=== PATIENT | female | born 1975 | race Caucasian/White ===

== ENCOUNTER 2017-01-17 07:34 | Outpatient (CLI) | payer BC ==
[2017-01-17 08:08] LABS: BASOPHILS % (AUTO) 0.7 %; EOSINOPHILS # (AUTO) 0.1 10^3/uL (0.0-0.7); EOSINOPHILS % (AUTO) 1.6 %; HCT - HEMATOCRIT 38.1 % (37.0-47.0); HGB - HEMOGLOBIN 13.3 g/dL (12.0-16.0); LYMPHOCYTES # (AUTO) 1.7 10^3/uL (1.5-3.5); LYMPHOCYTES % (AUTO) 32.8 %; MEAN CORPUSCULAR HEMOGLOBIN 31.3 pg (27.0-31.0); MEAN CORPUSCULAR HGB CONC 34.9 g/dL (32.0-36.0); MEAN CORPUSCULAR VOLUME 89.6 fL (81.0-99.0); MEAN PLATELET VOLUME 7.3 fL (7.9-10.8); MONOCYTES # (AUTO) 0.2 10^3/uL (0.0-1.0); MONOCYTES % (AUTO) 4.4 %; NEUTROPHILS # (AUTO) 3.1 10^3/uL (1.5-6.6); NEUTROPHILS % (AUTO) 60.5 %; RED BLOOD COUNT 4.25 10^6/uL (4.20-5.40); RED CELL DISTRIBUTION WIDTH 13.4 % (12.0-15.0); UNCORRECTED WHITE BLOOD COUNT 5.1 x10^3/uL; WHITE BLOOD COUNT 5.1 x10^3/uL (4.8-10.8)
[2017-01-17 08:22] LABS: HEMOGLOBIN A1C 0.52 g/dL
[2017-01-17 08:34] LABS: ALBUMIN/GLOBULIN RATIO 1.3 (1.0-2.2); BILIRUBIN,TOTAL 0.6 mg/dL (0.2-1.0); CREATININE 0.6 mg/dL (0.4-1.0); POTASSIUM 4.3 mmol/L (3.5-5.0); TOTAL PROTEIN 7.2 g/dL (6.7-8.2)
[2017-01-17 08:57] LABS: FERRITIN 39.1 ng/mL (11.0-306.8)
== END 2017-01-17 07:35 | disposition home or self-care (01) ==
LOC: LAB 07:34
PROVIDERS: ATTEND Nurse Practitioner Primary Care
DX: O24.429 Gestational diabetes mellitus in childbirth, unspecified control (principal); D64.9 Anemia, unspecified
CPT/HCPCS: 36415; 80053; 82607; 82728; 82746; 82947; 83036; 85025

== ENCOUNTER 2017-09-05 16:00 | Outpatient (CLI) | payer BC ==
[2017-09-05 16:25] LABS: BASOPHILS # (AUTO) 0.1 10^3/uL (0.0-0.1); BASOPHILS % (AUTO) 0.8 %; EOSINOPHILS # (AUTO) 0.1 10^3/uL (0.0-0.7); EOSINOPHILS % (AUTO) 2.1 %; HGB - HEMOGLOBIN 12.5 g/dL (12.0-16.0); LYMPHOCYTES % (AUTO) 28.8 %; MEAN CORPUSCULAR HEMOGLOBIN 30.7 pg (27.0-31.0); MEAN CORPUSCULAR HGB CONC 34.6 g/dL (32.0-36.0); MEAN CORPUSCULAR VOLUME 88.8 fL (81.0-99.0); MEAN PLATELET VOLUME 7.5 fL (7.9-10.8); MONOCYTES # (AUTO) 0.4 10^3/uL (0.0-1.0); MONOCYTES % (AUTO) 6.5 %; NEUTROPHILS # (AUTO) 4.2 10^3/uL (1.5-6.6); NEUTROPHILS % (AUTO) 61.8 %; PLT - PLATELET COUNT 295 10^3/uL (130-450); RED BLOOD COUNT 4.08 10^6/uL (4.20-5.40); RED CELL DISTRIBUTION WIDTH 13.2 % (12.0-15.0); WHITE BLOOD COUNT 6.9 x10^3/uL (4.8-10.8)
[2017-09-05 16:36] LABS: ALBUMIN 4.7 g/dL (3.2-5.5); ALBUMIN/GLOBULIN RATIO 1.4 (1.0-2.2); BILIRUBIN,TOTAL 0.2 mg/dL (0.2-1.0); CALCIUM 9.7 mg/dL (8.5-10.3); CREATININE 0.5 mg/dL (0.4-1.0)
== END 2017-09-05 16:01 | disposition home or self-care (01) ==
LOC: LAB.R 16:00
PROVIDERS: ATTEND Nurse Practitioner Primary Care
DX: R10.9 Unspecified abdominal pain (principal)
CPT/HCPCS: 36415; 80053; 85025

== ENCOUNTER 2017-09-05 16:32 | Outpatient (CLI) | payer BC ==
[2017-09-05] MEDS ORDERED: IOPAMIDOL-300 50 ML VIAL ONE (16:53)
[2017-09-05] MEDS ORDERED: IOPAMIDOL-300 100 ML VIAL ONE (16:53)
[2017-09-05] MEDS ORDERED: IOPAMIDOL-300 50 ML VIAL PO ONE (18:32)
[2017-09-05] MEDS ORDERED: IOPAMIDOL-300 100 ML VIAL IVP ONE (18:35)
--- NOTE | 2017-09-05 18:55 | CT Report ---
EXAM: CT ABDOMEN AND PELVIS EXAM DATE: 09/05/2017 06:07 PM. CLINICAL HISTORY: ABDOMINAL PAIN. COMPARISONS: Ultrasound 11/29/2015. TECHNIQUE: Routine helical CT imaging was performed through the abdomen and pelvis. IV contrast: 100 cc Isovue-300 IV. Enteric contrast: Yes. Reconstructions: Coronal and sagittal. In accordance with CT protocol optimization, one or more of the following dose reduction techniques w ere utilized for this exam: automated exposure control, adjustment of mA and/or KV based on patient s ize, or use of iterative reconstructive technique. FINDINGS: Lung Bases: Unremarkable. Liver: Normal. No masses. Gallbladder/Bile Ducts: Unremarkable. Spleen: Normal. Pancreas: Normal. Adrenal Glands: Normal. Kidneys: Normal. No masses or hydronephrosis. Peritoneal Cavity/Bowel: Normal. No free fluid, free air or adenopathy. No masses or acute inflammato ry process. Pelvic Organs: There is an ovoid homogeneous structure in the left adnexa corresponding to the locati on of the left ovary. This structure measures 6.4 x 5.8 x 6.6 cm with a density of 30 Hounsfield unit s. The right ovary is normal in size. The uterus and urinary bladder appear unremarkable. Vasculature: No aneurysms or other significant abnormality. Bones: No significant abnormality. Other: None. IMPRESSION: 1. Complex cyst in left ovary or adnexa measures 6.4 x 5.8 x 6.6 cm. 2. No free fluid. 3. Otherwise unremarkable. RADIA The call report notification system was initiated by Dr. Efrain Castillo at 18:49 hrs on 8. The above findings were discussed with Dr Ishaan Dr by Dr. Efrain Castillo at 18:54 hrs on 09/05. Referring Provider Line: [phone] SITE ID: [id number]
== END 2017-09-05 16:33 | disposition home or self-care (01) ==
LOC: DI 16:32
PROVIDERS: ATTEND Internal Medicine
DX: R10.9 Unspecified abdominal pain (principal); N94.89 Other specified conditions associated with female genital organs and menstrual cycle
CPT/HCPCS: 36415; 74177; 80053; 85025; Q9967

== ENCOUNTER 2017-10-05 08:00 | Outpatient (CLI) | payer BC | END 2017-10-05 08:01 | disposition home or self-care (01) | LOC: LAB.R 08:00 | PROVIDERS: ATTEND Obstetrics & Gynecology | DX: Z11.3 Encounter for screening for infections with a predominantly sexual mode of transmission (principal) | CPT/HCPCS: 87491; 87591 ==

== ENCOUNTER 2017-10-10 13:49 | Outpatient (CLI) | payer BC ==
[2017-10-10 14:30] LABS: BASOPHILS # (AUTO) 0.1 10^3/uL (0.0-0.1); BASOPHILS % (AUTO) 0.9 %; EOSINOPHILS # (AUTO) 0.1 10^3/uL (0.0-0.7); EOSINOPHILS % (AUTO) 1.8 %; HGB - HEMOGLOBIN 11.9 g/dL (12.0-16.0); LYMPHOCYTES # (AUTO) 2.1 10^3/uL (1.5-3.5); LYMPHOCYTES % (AUTO) 28.4 %; MEAN CORPUSCULAR HEMOGLOBIN 30.6 pg (27.0-31.0); MEAN CORPUSCULAR HGB CONC 34.6 g/dL (32.0-36.0); MEAN CORPUSCULAR VOLUME 88.4 fL (81.0-99.0); MEAN PLATELET VOLUME 7.5 fL (7.9-10.8); MONOCYTES # (AUTO) 0.4 10^3/uL (0.0-1.0); MONOCYTES % (AUTO) 5.9 %; NEUTROPHILS # (AUTO) 4.7 10^3/uL (1.5-6.6); PLT - PLATELET COUNT 296 10^3/uL (130-450); RED BLOOD COUNT 3.89 10^6/uL (4.20-5.40); RED CELL DISTRIBUTION WIDTH 13.8 % (12.0-15.0); WHITE BLOOD COUNT 7.5 x10^3/uL (4.8-10.8)
[2017-10-10 14:59] LABS: BILIRUBIN,URINE NEGATIVE (NEGATIVE); GLUCOSE, URINE (UA) NEGATIVE (NEGATIVE); KETONES,URINE (UA) NEGATIVE (NEGATIVE); LEUKOCYTE ESTERASE, URINE NEGATIVE (NEGATIVE); NITRITE,URINE NEGATIVE (NEGATIVE); OCCULT BLOOD,URINE NEGATIVE (NEGATIVE); PH,URINE 5.5 PH (5.0-7.5); PROTEIN,URINE NEGATIVE (NEGATIVE); UROBILINOGEN,URINE 0.2 (NORMAL) E.U./dL (NORMAL)
[2017-10-10 15:02] LABS: CLARITY,URINE CLEAR (CLEAR); HCG UR QUAL NEGATIVE
== END 2017-10-10 13:50 | disposition home or self-care (01) ==
LOC: LAB 13:49
PROVIDERS: ATTEND Obstetrics & Gynecology
DX: Z01.818 Encounter for other preprocedural examination (principal); N83.8 Other noninflammatory disorders of ovary, fallopian tube and broad ligament; N92.0 Excessive and frequent menstruation with regular cycle
CPT/HCPCS: 36415; 81003; 81025; 85025; 86850; 86900; 86901; 93005

== ENCOUNTER 2017-10-12 13:23 | Day surgery (SDC) | payer BC ==
[2017-10-12] MEDS ORDERED: LACTATED RINGERS 1,000 ML IV ONE ×3 (13:38→18:24)
[2017-10-12] MEDS ORDERED: SCOPOLAMINE PATCH TOP ONE (14:21)
[2017-10-12] MEDS ORDERED: BUPIVACAINE 0.5%-EPI 1:200000 PF 10 ML VIAL ONE (14:49)
[2017-10-12] MEDS ORDERED: EPINEPHrine 1 MG/ML AMP IVP ONE (16:22)
[2017-10-12] MEDS ORDERED: BUPIVACAINE 0.5% PF 30 ML VIAL INFIL ONE (16:22)
[2017-10-12] MEDS ORDERED: BUPIVACAINE 0.5%-EPI 1:200000 PF 30 ML VIAL SUBQ ONE (16:22)
[2017-10-12] MEDS ORDERED: ONDANSETRON 4 MG/2 ML VIAL IVP ONE (17:00)
[2017-10-12] MEDS ORDERED: ROCURONIUM 50 MG/5 ML VIAL IVP ONE (17:00)
[2017-10-12] MEDS ORDERED: NEOSTIGMINE 1 MG/1 ML 10 ML MDV IVP ONE (17:00)
[2017-10-12] MEDS ORDERED: MIDAZOLAM 2 MG/2 ML VIAL IVP ONE (17:00)
[2017-10-12] MEDS ORDERED: PROPOFOL 200 MG/20 ML VIAL IVP ONE (17:00)
[2017-10-12] MEDS ORDERED: VECURONIUM 10 MG VIAL IVP ONE (17:00)
[2017-10-12] MEDS ORDERED: fentaNYL 100 MCG/2 ML VIAL IVP ONE (17:00)
[2017-10-12] MEDS ORDERED: GLYCOPYRROLATE 1 MG/5 ML VIAL IVP ONE (17:00)
[2017-10-12] MEDS ORDERED: DEXAMETHASONE 4 MG/ML VIAL IVP ONE (17:00)
--- NOTE | 2017-10-12 18:26 | OPERATIVE REPORT ---
Operative Report - General Procedure Date: 10/12/17 Planned Procedure: Diagnostic laparoscopy; left salpingo-oophorectomy; right salpingectomy; No Pre-Op Diagnosis: Left lower quadrant and pelvic pain (severe); CT documented left ovarian cy Procedure Performed: Laparoscopic left salpingo-oophorectomy; right ovarian cystectomy; extensive adhesional lysis; including dissection of the left ureter; NovaSure endometrial ablation; cystoscopy Post Op Diagnosis: Frozen pelvis; left ovarian cyst with features of endometriosis, await soraya - Procedure Note Primary Surgeon: Alvin Chau MD FCOG Secondary Surgeon: Elsa aCrpio DO, FACOG Anesthesia Provider: Ivonne Benton certified nurse rewinder Anesthesia Technique: General ET tube Pathology: Left salpingo-oophorectomy specimen; right cystectomy specimen IV Fluids (mL): 2,000 Estimated Blood Loss (mL): 100 Urine Output (mL): 250 Drain/Tube Type: Other (Drain to Flores catheter) Complications: None
[2017-10-12] MEDS: HYDROmorphone 1 MG/ML SYRINGE ONE ×3 (18:35→18:45)
[2017-10-12] MEDS ORDERED: ACETAMINOPHEN 1,000 MG/100 ML 100 ML IV ONE (18:41)
[2017-10-12] MEDS: fentaNYL 100 MCG/2 ML VIAL ONE ×2 (18:55→19:05)
[2017-10-12] MEDS ORDERED: ONDANSETRON 4 MG/2 ML VIAL IVP PRN (20:10)
[2017-10-12] MEDS ORDERED: HYDROmorphone 1 MG/ML SYRINGE IVP PRN (20:14)
[2017-10-12] MEDS: IBUPROFEN 600 MG TABLET PO SCH (20:44)
--- NOTE | 2017-10-12 21:45 | OPERATIVE REPORT ---
DATE OF SERVICE: 10/12/2017 Physician: Alvin Chau MD PREOPERATIVE DIAGNOSES 1. Severe left lower quadrant and pelvic pain. 2. CT documented left ovarian cyst. 3. Menorrhagia. 4. Morbid obesity. POSTOPERATIVE DIAGNOSES 1. Frozen pelvis with Extensive dense adhesions 2. Left ovarian cyst with features of endometriosis. Await final pathology. 3. Right simple cyst, approximately 7 cm in size. Await pathology. 3. Same as above preoperative diagnosis. NAME OF PROCEDURE 1. Laparoscopic left salpingo-oophorectomy. 2. Right ovarian cystectomy. 3. Lysis of extensive dense adhesions, including dissection of the left ureter. 4. Endometrial ablation with NovaSure. 5. Cystoscopy. SURGEON: Alvin Chau MD, FACOG SECOND SURGEON: Elsa Doshi DO, FACOG TRANS ROUTER: Ivonne Benton, Certified Nurse Registration Rep. ANESTHESIA TYPE: General with ET tube placed. PATHOLOGY: Left salpingo-oophorectomy. SPECIMEN: Right cystectomy specimen. COMPLICATIONS: None. ESTIMATED BLOOD LOSS: 100. IV FLUIDS: 2000. URINE OUTPUT: 250, clear. DRAINS: Flores catheter to gravity. FINDINGS: Exam under anesthesia finds no external lesions. The vagina has scant old blood originally and no abnormal discharge. Cervix seems fixed and there is very little motion. The uterus is bulky, probably a 7 week size. Cannot clearly feel the left ovary, but the adnexa again feels bulky and fixated. Right ovary is a bit more mobile and may be 6 cm in size. Laparoscopy findings frozen pelvis with extensive and dense adhesions between the left ovary, tube and sidewall gluing the uterus to the same area. On the ovary, there are some chocolate cysts. The right ovary is enlarged and a bit more mobile. Both tubes appear to be edematous and probably occluded. The left ureter is completely encased in a large block of dense fibrous adhesions Postoperative cystoscopy shows no incursion into the bladder. There is trigonitis and chronic cystitis. Right and left ureters are patent with free flow of urine. TECHNIQUE: Prior to the surgery, I reviewed CT scan with Dr. Mandel. The left ovary had a fluid that was either hemorrhage or even possibly mucus. I discussed this finding with the patient. She did not desire hysterectomy and would like to conserve one ovary if possible. Final informed consent was completed. The patient was placed on the operating table in the supine position. She was uneventfully induced and intubated. The patient was prepped and draped in the customary sterile fashion, including a HUMI uterine manipulator and Flores catheter. Prior to beginning the procedure, a timeout briefing was done per protocol. A small incision was placed under the umbilical skin fold and a 5 mm trocar placed uneventfully under direct visualization. The abdomen was insufflated with CO2 gas at 12 mm of pressure. Next, right and left lower quadrant operating ports were placed under direct visualization. The abdomen and pelvis were assessed. Reference photos. We began by lysing the adhesions around the left tube and then working from the superficial dense adhesions down into the retroperitoneal space. A 5 mm midline suprapubic trocar was placed to facilitate retraction. Dr. Doshi was then summoned for assistance. The left ovary was placed on medial superior traction. A systematic dissection with a LigaSure was done to mobilize the ovary out of the ovarian fossa. There were dense adhesions on the sidewall. We explored the flap of peritoneum but could not locate the ureter. Next, we started at the pelvic brim and opened the peritoneum in search of the ureter. This was tedious and time consuming with a So dissector and LigaSure. The ureter was identified at the pelvic brim and where it raninto the ovarian mass of adhesions. The utero-ovarian ligaments were then divided, as well as the round ligaments, in order to get better exposure. The tube, ovary and the block of adhesion were lysed on tension. Using [place] retractor, we entered the ureteral canal and began blunt and hydro dissection, followed by judicious use of LigaSure to unroof the ureter and dissect it away from the block of adhesions. Dissection took time, but we were able to free the entire mass of adhesions and ovary/tube. Any small bleeders were addressed with bipolar cautery. The right lower quadrant operating port was then widened to accommodate the 12 mm trocar sleeve. We used a Mylar catch bag to capture the ovary. It would not fit through the 12 mm wound. The wound was then widened with blunt and sharp dissection until we could safely pass the ovarian specimen. A 12 mm trocar was then placed back in the abdomen and we continued the case. Next, the right ovary was grasped and stabilized with a Tivixige grasper. An incision was made with monopolar cautery from the far tip of the ovary upward for a span of 5 cm. The cyst wall was then identified and then, using blunt technique, peeled away from the underlying ovary. Bipolar cautery was used to cauterize the cyst bed to prevent hemorrhage. All operative sites were lavaged and found to be hemostatically secure. Reference photos. Trocars were removed and the 12 mm port fascia was sutured closed. Skin was closed with running subcuticular stitches of 4-0 Monocryl and dressed with Dermabond. The HUMI manipulator was removed from the cervix. The uterus was measured to 7.5 using the NovaSure sound. Next, NovaSure was brought to the field and inserted into the uterine cavity. This was rotated gently [id number] until a maximum of 4.5 was obtained. The test cycle and safety cycle were then accomplished. Next, the NovaSure was fired uneventfully for its entire cycle. NovaSure was then removed. There was no appreciable bleeding post- endometrial ablation. Next, due to the ureteric dissection, cystoscopy was performed that confirmed the patency of both the right and left ovary. There was some cystitis cystica and chronic cystitis findings. The Flores was placed back into the bladder. The patient was uneventfully aroused from general anesthesia and taken to the recovery room in stable condition. She will remain overnight on extended stay status for pain control and observation. TD: 10/12/2017 21:43 TRAVIS
[2017-10-12 22:37] VITALS: BP 137/75
[2017-10-12] MEDS: LACTATED RINGERS 1,000 ML IV SCH (22:56)
[2017-10-13] MEDS: HYDROcod/ACETAM 5/325 MG TABLET PO PRN ×3 (00:11→10:06)
[2017-10-13] MEDS: IBUPROFEN 600 MG TABLET PO SCH ×2 (05:12→12:11)
[2017-10-13] MEDS: LACTATED RINGERS 1,000 ML IV SCH (06:21)
[2017-10-13] MEDS ORDERED: SODIUM CHLORIDE FLUSH 0.9% 10 ML SYRINGE ONE (06:36)
[2017-10-13 07:30] LABS: BASOPHILS % (AUTO) 0.3 %; HGB - HEMOGLOBIN 11.1 g/dL (12.0-16.0); LYMPHOCYTES % (AUTO) 9.5 %; MEAN CORPUSCULAR HEMOGLOBIN 30.2 pg (27.0-31.0); MEAN CORPUSCULAR HGB CONC 33.8 g/dL (32.0-36.0); MEAN CORPUSCULAR VOLUME 89.5 fL (81.0-99.0); MEAN PLATELET VOLUME 7.5 fL (7.9-10.8); MONOCYTES # (AUTO) 0.6 10^3/uL (0.0-1.0); MONOCYTES % (AUTO) 5.8 %; NEUTROPHILS # (AUTO) 9.1 10^3/uL (1.5-6.6); NEUTROPHILS % (AUTO) 84.4 %; PLT - PLATELET COUNT 322 10^3/uL (130-450); RED BLOOD COUNT 3.68 10^6/uL (4.20-5.40); RED CELL DISTRIBUTION WIDTH 13.6 % (12.0-15.0); WHITE BLOOD COUNT 10.8 x10^3/uL (4.8-10.8)
--- NOTE | 2017-10-14 07:08 | PROVIDER PROGRESS NOTE ---
Subjective - General Procedure Date: 10/12/17 Post Op Days: 2 - Review of Systems Wound/Incisions: positive: Healing well Drain Type: Flores removed and patient voiding well Drain Output Description: Clear urine General: positive: No symptoms HEENT: positive: No symptoms Pulmonary: positive: No symptoms Cardiovascular: positive: No symptoms Gastrointestinal: positive: No symptoms, Abdominal pain (Pain appropriate for extent of surgery), Other (Tolerated breakfast well) Genitourinary: positive: No symptoms Musculoskeletal: positive: No symptoms (Reported normal left leg sensation and mobility/strength), Other Skin: positive: No symptoms Psychiatric: positive: No symptoms Objective - Patient Data Weight: Weight 10/12/17 10/13/17 10/14/17 23:59 23:59 23:59 Weight (kg) 97 kg Intake & Output: Intake and Output Totals x24h 10/12/17 10/13/17 10/14/17 23:59 23:59 23:59 Intake Total 1000 Output Total 300 Balance -300 1000 - Lab Results Lab Results: 10/13/17 07:15 Other Lab Results: Lab Results x24hrs 10/13/17 Range/Units 07:15 WBC 10.8 (4.8-10.8) x10^3/uL RBC 3.68 L (4.20-5.40) 10^6/uL Hgb 11.1 L (12.0-16.0) g/dL Hct 32.9 L (37.0-47.0) % MCV 89.5 (81.0-99.0) fL MCH 30.2 (27.0-31.0) pg MCHC 33.8 (32.0-36.0) g/dL RDW 13.6 (12.0-15.0) % Plt Count 322 (130-450) 10^3/uL MPV 7.5 L (7.9-10.8) fL Neut # 9.1 H (1.5-6.6) 10^3/uL Lymph # 1.0 L (1.5-3.5) 10^3/uL Hodgeman # 0.6 (0.0-1.0) 10^3/uL Eos # 0.0 (0.0-0.7) 10^3/uL Baso # 0.0 (0.0-0.1) 10^3/uL Absolute Nucleated RBC 0.00 x10^3/uL Nucleated RBC % 0.0 /100WBC Physical Exam - Physical Exam General: positive: No acute distress, Alert HEENT: positive: Moist mucous membranes Neck: positive: Supple w/out meningeal sx Cardiac: positive: Regular Rate, Regular Rhythm Resipratory: positive: Clear to ausultation alva Abdomen: positive: Normal Bowel sounds, Tender to palpation (Mild left lower quadrant tenderness) Female : positive: Normal external Extremities: positive: Normal ROM, No pedal edema, Non tender Skin: positive: Warm and dry Neurologic: positive: Alert and Oriented X 3, Normal motor/no weakness, Normal Sensation Assessment/Plan - Assessment/Plan Assessment: Patient had extensive laparoscopic dissection and surgery for a frozen pelvis. Await pathology results. Patient required extended-stay because of late stop time of her surgery and the need for analgesia. She is progressed well without apparent problems. She is capable of taking in nutrition and her normal care activities. Patient feels well and desires discharge home. available for supportive care. Prescriptions previously written. Plan: Patient was discharged home with instructions. Warning sign and callback reviewed. She will be seen in 2 weeks for wound check and final pathology review.
== END 2017-10-13 13:00 | disposition home or self-care (01) ==
LOC: SDS 13:23 → OBS 19:00 → SDS 10-13 13:00
PROVIDERS: ATTEND Obstetrics & Gynecology
PROC: 0U5B8ZZ Destruction of Endometrium, Via Natural or Artificial Opening Endoscopic (ICD-10-PCS; 2017-10-12)
PROC: 0DNW4ZZ Release Peritoneum, Percutaneous Endoscopic Approach (ICD-10-PCS; 2017-10-12)
PROC: 0UB14ZZ Excision of Left Ovary, Percutaneous Endoscopic Approach (ICD-10-PCS; principal; 2017-10-12 14:30)
PROC: 0UB64ZZ Excision of Left Fallopian Tube, Percutaneous Endoscopic Approach (ICD-10-PCS; 2017-10-12 14:30)
PROC: 0UB04ZZ Excision of Right Ovary, Percutaneous Endoscopic Approach (ICD-10-PCS; 2017-10-12 14:30)
DX: N94.89 Other specified conditions associated with female genital organs and menstrual cycle (principal); N73.6 Female pelvic peritoneal adhesions (postinfective); N92.0 Excessive and frequent menstruation with regular cycle; E66.01 Morbid (severe) obesity due to excess calories; F32.9 Major depressive disorder, single episode, unspecified
CPT/HCPCS: 36415; 49329; 58353; 58661; 58662; 85025; A9270; J0131; J1170; J3490; J7120

== ENCOUNTER 2017-10-21 13:15 | Outpatient (CLI) | payer OTHER ==
[2017-10-21 15:43] LABS: BILIRUBIN,URINE NEGATIVE (NEGATIVE); GLUCOSE, URINE (UA) NEGATIVE (NEGATIVE); KETONES,URINE (UA) NEGATIVE (NEGATIVE); LEUKOCYTE ESTERASE, URINE NEGATIVE (NEGATIVE); NITRITE,URINE NEGATIVE (NEGATIVE); OCCULT BLOOD,URINE TRACE-INTA (NEGATIVE); PROTEIN,URINE NEGATIVE (NEGATIVE); UROBILINOGEN,URINE 0.2 (NORMAL) E.U./dL (NORMAL)
[2017-10-21 15:45] LABS: CLARITY,URINE CLEAR (CLEAR)
[2017-10-21 16:04] LABS: BACTERIA,URINE Rare /HPF (None Seen); RBC,URINE None Seen /HPF (0-5); SQUAMOUS EPITHELIAL CELL,UR MANY Squamous (<= Few)
== END 2017-10-21 13:16 | disposition home or self-care (01) ==
LOC: LAB.R 13:15
PROVIDERS: ATTEND Obstetrics & Gynecology
DX: R31.9 Hematuria, unspecified (principal)
CPT/HCPCS: 81001; 87086

== ENCOUNTER 2017-10-21 14:03 | Outpatient (CLI) | payer OTHER ==
[2017-10-21 14:22] LABS: BASOPHILS # (AUTO) 0.1 10^3/uL (0.0-0.1); BASOPHILS % (AUTO) 0.6 %; EOSINOPHILS # (AUTO) 0.2 10^3/uL (0.0-0.7); EOSINOPHILS % (AUTO) 1.5 %; HGB - HEMOGLOBIN 11.5 g/dL (12.0-16.0); LYMPHOCYTES % (AUTO) 19.8 %; MEAN CORPUSCULAR HEMOGLOBIN 30.9 pg (27.0-31.0); MEAN CORPUSCULAR HGB CONC 34.6 g/dL (32.0-36.0); MEAN CORPUSCULAR VOLUME 89.2 fL (81.0-99.0); MEAN PLATELET VOLUME 6.9 fL (7.9-10.8); MONOCYTES # (AUTO) 0.6 10^3/uL (0.0-1.0); NEUTROPHILS # (AUTO) 7.3 10^3/uL (1.5-6.6); NEUTROPHILS % (AUTO) 72.1 %; PLT - PLATELET COUNT 291 10^3/uL (130-450); RED BLOOD COUNT 3.73 10^6/uL (4.20-5.40); RED CELL DISTRIBUTION WIDTH 13.9 % (12.0-15.0)
[2017-10-21 14:34] LABS: ALBUMIN 4.6 g/dL (3.2-5.5); ALBUMIN/GLOBULIN RATIO 1.4 (1.0-2.2); BILIRUBIN,TOTAL 0.6 mg/dL (0.2-1.0); CALCIUM 9.1 mg/dL (8.5-10.3); CREATININE 0.5 mg/dL (0.4-1.0); TOTAL PROTEIN 7.8 g/dL (6.7-8.2)
[2017-10-21] MEDS ORDERED: IOPAMIDOL-300 100 ML VIAL ONE (14:45)
[2017-10-21] MEDS ORDERED: IOPAMIDOL-300 100 ML VIAL IVP ONE (17:53)
--- NOTE | 2017-10-21 18:45 | CT Preliminary Report ---
Exam: CT IVP IMPRESSION: 1. No definite cause for hematuria demonstrated, specifically no evidence of urinary calculi and the bladder is unremarkable in appearance by CT, though cystoscopy could be considered for further evalua tion of the urinary bladder. 2. Nonspecific nonopacification of the distal right ureter beyond the sacral promontory to the UVJ wh ich is not well followed on this exam, though appears to deviate somewhat more medially than typical. No hydronephrosis/hydroureter to suggest obstruction however and no evidence of extravasated contras t to suggest a ureteral laceration. 3. A 2.8 cm right adnexal cystic appearing lesion, possibly a simple cyst or follicle, or hemorrhagic cyst, though within normal size limits for a premenopausal patient not emergent pelvic ultrasound co uld BE considered for further evaluation. SARAIA The call report notification system was initiated by Dr. Saul Rucker at 18:19 hrs on 10/21/17. The above findings were discussed with Dr Kandi by Dr. Saul Rucker at 18:43 hrs on 10/21/17. SITE ID: [id number]
--- NOTE | 2017-10-21 18:59 | CT Report ---
EXAM: CT ABDOMEN AND PELVIS WITHOUT AND WITH CONTRAST (CT IVP) EXAM DATE: 10/21/2017 05:06 PM. CLINICAL HISTORY: Hematuria. Additional history: Right flank pain. Recent left oophorectomy and right ovarian cystectomy. COMPARISONS: CT of the abdomen and pelvis with contrast 09/05/2017. TECHNIQUE: Routine helical imaging was performed through the kidneys, ureters and bladder in the prec ontrast, postcontrast and delayed phase. IV Contrast: 100 mL Isovue-300. Reconstructions: Coronal and sagittal. In accordance with CT protocol optimization, one or more of the following dose reduction techniques w ere utilized for this exam: automated exposure control, adjustment of mA and/or KV based on patient s ize, or use of iterative reconstructive technique. FINDINGS: Lung Bases: Unremarkable. Right Kidney/Ureter: No calculi or hydronephrosis or hydroureter. No evidence of a mass. The ureter i s normal caliber and opacifies normally through its proximal and mid portions, though does not opacif y beyond approximately the level of the sacral promontory and is difficult to follow distally in the pelvis to the UVJ through this region. A second delayed scan attempt was performed, but again the ure ter did not opacify beyond approximately the level of the sacral promontory as it deviated slightly m ore medially than typical, at the point which it crossed over the right external iliac artery and bet ween the artery and uterus. Left Kidney/Ureter: No stones, hydronephrosis, or masses. The ureter and collecting system are well o pacified and unremarkable. Other Solid Organs: The liver is mildly hypoattenuating in keeping with mild steatosis. No suspicious focal hepatic lesion. The, spleen, pancreas, gallbladder, and adrenal glands are unremarkable.The bi le ducts are unremarkable. Peritoneal Cavity/Bowel: -No free fluid or extraluminal gas. There is minimal stranding in the pelvis and left lower quadrant, region of the expected left adnexa, which is no longer identified, presumably surgically resected. N o evidence of fluid collection or abscess. -No evidence of bowel obstruction or inflammation. No abnormally enlarged lymph nodes. Pelvic Organs: No bladder calculi, obstruction or evidence of a bladder mass, though the latter canno t be completely excluded by CT and cystoscopy is required for this purpose. The uterus is anteflexed and unremarkable. -As above, the patient appears post left oophorectomy with trace stranding in the surgical bed with n o evidence of abscess or seroma. -There is a 2.8 cm diameter cystic structure in the right adnexa, which measures borderline high dens ity at 20 Hounsfield units (6/72). Vasculature: No abdominal aortic aneurysm. Bones: Normal. Other: Tiny fat-containing periumbilical hernia. No abdominal wall bowel-containing hernia or hematom a demonstrated. There is stranding within the right lower quadrant abdominal wall fat suggestive of p rior trocar site given recent surgery. IMPRESSION: 1. No definite cause for hematuria demonstrated, specifically no evidence of urinary calculi and the bladder is unremarkable in appearance by CT, though cystoscopy could be considered for further evalua tion of the urinary bladder. 2. Nonspecific nonopacification of the distal right ureter beyond the sacral promontory to the UVJ, w hich is not well followed on this exam, though appears to deviate somewhat more medially than typical . No hydronephrosis/hydroureter to suggest obstruction; however, no evidence of extravasated contrast to suggest an ureteral laceration. 3. A 2.8 cm right adnexal cystic-appearing lesion, possibly a simple cyst or follicle or hemorrhagic cyst, though within normal size limits for a premenopausal patient. Nonemergent pelvic ultrasound cou ld be considered for further evaluation. RADIA The call report notification system was initiated by Dr. Saul Rucker at 18:19 hrs on 10/21/17. The above findings were discussed with Dr Kandi by Dr. Saul Rucker at 18:43 hrs on 10/21/17. Referring Provider Line: [phone] SITE ID: [id number]
== END 2017-10-21 14:04 | disposition home or self-care (01) ==
LOC: DI 14:03
PROVIDERS: ATTEND Obstetrics & Gynecology
DX: R31.9 Hematuria, unspecified (principal); N94.9 Unspecified condition associated with female genital organs and menstrual cycle
CPT/HCPCS: 36415; 74178; 80053; 81001; 85025; 87086; Q9967

== ENCOUNTER 2017-12-19 11:05 | Outpatient (CLI) | payer OTHER | END 2017-12-19 11:06 | disposition home or self-care (01) | LOC: LAB.R 11:05 | PROVIDERS: ATTEND Internal Medicine | DX: R30.0 Dysuria (principal) | CPT/HCPCS: 87086; 87181 ==

== ENCOUNTER 2018-04-07 11:00 | Outpatient (CLI) | payer OTHER | END 2018-04-07 11:01 | disposition home or self-care (01) | LOC: LAB.R 11:00 | PROVIDERS: ATTEND Nurse Practitioner Primary Care | DX: N30.00 Acute cystitis without hematuria (principal) | CPT/HCPCS: 87086; 87181 ==

== ENCOUNTER 2019-03-26 06:50 | Outpatient (CLI) | payer BC ==
[2019-03-26] MEDS ORDERED: IOVERSOL 320 100 ML VIAL IVP ONE ×2 (07:10→09:22)
--- NOTE | 2019-03-26 09:18 | CT Report ---
Reason: ANOSMIA Procedure Date: 03/26/2019 Accession Number: [id number] / [id number] Procedure: CT - HEAD W CPT Code: FULL RESULT: EXAM: CT HEAD EXAM DATE: 03/26/2019 07:27 AM. CLINICAL HISTORY: ANOSMIA. COMPARISON: None. TECHNIQUE: Multiaxial CT images were obtained from the foramen magnum to the vertex. Reformats: Sagittal and coronal. IV contrast: Yes, 80 ML Isovue-370. In accordance with CT protocol optimization, one or more of the following dose reduction techniques were utilized for this exam: automated exposure control, adjustment of mA and/or KV based on patient size, or use of iterative reconstructive technique. FINDINGS: Parenchyma: No intraparenchymal hemorrhage. No evidence of mass, midline shift, or CT findings of infarction. José-white differentiation is distinct. There is no enhancing abnormality. Extraaxial Spaces: Normal for age. No subdural or epidural collections identified. Ventricles: Normal in size and position. Sinuses and Orbits: Imaged paranasal sinuses, orbits, and mastoids show no significant abnormality. Bones: No evidence of fracture or calvarial defect. Other: None. IMPRESSION: Normal head CT. RADIA ADDENDUM: 03/26/19 09:31 Incorrect contrast initially listed. CT exam formed postcontrast with 80 mL Optiray 320 IV contrast.
== END 2019-03-26 06:51 | disposition home or self-care (01) ==
LOC: DI 06:50
PROVIDERS: ATTEND Otolaryngology
DX: R43.0 Anosmia (principal)
CPT/HCPCS: 70460; Q9967

== ENCOUNTER 2019-06-22 09:29 | Outpatient (CLI) | payer BC ==
--- NOTE | 2019-06-24 15:13 | Ultrasound Report ---
Reason: IUD CHECK Procedure Date: 06/22/2019 Accession Number: [id number] / [id number] Procedure: US - Pelvic w/Transvaginal CPT Code: Final Report FULL RESULT: EXAM: PELVIC ULTRASOUND EXAM DATE: 06/22/2019 10:03 AM. CLINICAL HISTORY: IUD CHECK. COMPARISON: TRANSVAGINAL 11/29/2015 8:28 PM ABDOMEN/PELVIS W/ 09/05/2017 6:06 PM. TECHNIQUE: Realtime transabdominal pelvic scan performed to identify the uterus and adnexa and as an overview of other pelvic structures, followed by transvaginal scan to provide greater detail of the uterus and adnexa, with static image documentation. FINDINGS: Uterus: 10.4 x 5.7 x 6.5 cm, volume 204 cc. Anteverted position. Normal overall size and echotexture. Masses: 1. Right anterior body myometrial/subserosal fibroid 2.6 x 2.4 x 2.4 cm. Endometrium: 6.9 mm. Intracavitary IUD in expected position. Cervix: Unremarkable. Right Ovary: 4.9 x 3.4 x 4.6 cm, volume 40 cc. Normal echotexture and blood flow. There is a 3.2 cm simple appearing cyst. Left Ovary: Not identified, compatible with reported left oophorectomy. Free Fluid: None. Other: None. IMPRESSION: 1. IUD appears to be appropriately positioned. 2. Uterine fibroid. 3. Right ovarian 3.2 cm simple cyst, almost certainly benign. No imaging follow-up is necessary. 4. Left ovary not identified, compatible with reported left oophorectomy. RADIA
== END 2019-06-22 09:30 | disposition home or self-care (01) ==
LOC: DI 09:29
PROVIDERS: ATTEND Obstetrics & Gynecology
DX: Z30.431 Encounter for routine checking of intrauterine contraceptive device (principal); D25.2 Subserosal leiomyoma of uterus; N83.291 Other ovarian cyst, right side
CPT/HCPCS: 76830; 76856

== ENCOUNTER 2019-09-06 09:41 | Outpatient (CLI) | payer BC ==
--- NOTE | 2019-09-06 11:05 | Ultrasound Report ---
Reason: DYSMENORRHEA Procedure Date: 09/06/2019 Accession Number: [id number] / [id number] Procedure: US - Pelvic w/Transvaginal CPT Code: Final Report FULL RESULT: EXAM: PELVIC ULTRASOUND EXAM DATE: 09/06/2019 10:32 AM. CLINICAL HISTORY: Dysmenorrhea. COMPARISON: PELVIC W/TRANSVAGINAL 06/22/2019 10:03 AM. TECHNIQUE: Realtime transabdominal pelvic scan performed to identify the uterus and adnexa and as an overview of other pelvic structures, followed by transvaginal scan to provide greater detail of the uterus and adnexa, with static image documentation. FINDINGS: Uterus: 10.1 x 5.5 x 6.1 cm, volume 177 cc. Anteverted position. Normal overall size and echotexture. Masses: Anterior myometrial mass measuring 2.4 x 1.6 x 2.0 cm, appearance suggestive of fibroid. Endometrium: The endometrium contains an intrauterine device, limiting its evaluation. Within these limitations, no convincing mass is detected. Cervix: Fluid is seen within the endocervix. Right Ovary: 5.1 x 5.1 x 3.3 cm, volume 45 cc. 2.9 x 2.6 x 1.9 cm cyst without solid component or internal echoes, simple appearance. Left Ovary: Not seen, reported surgically absent. Free Fluid: None. Other: None. IMPRESSION: Intrauterine device within the endometrium. Fluid within the endocervix. Anterior 2.4 cm myometrial fibroid. Sub 3 cm simple-appearing right adnexal cyst. RADIA
== END 2019-09-06 09:42 | disposition home or self-care (01) ==
LOC: DI 09:41
PROVIDERS: ATTEND Obstetrics & Gynecology
DX: N83.201 Unspecified ovarian cyst, right side (principal); D25.9 Leiomyoma of uterus, unspecified; Z97.5 Presence of (intrauterine) contraceptive device
CPT/HCPCS: 76830; 76856

== ENCOUNTER 2019-09-06 09:42 | Outpatient (CLI) | payer BC ==
--- NOTE | 2019-09-07 09:04 | Mammography Report ---
Reason: SCREENING MAMMO Procedure Date: 09/06/2019 Accession Number: [id number] / [id number] Procedure: DELMAR - Screening Mammo w/Tk CPT Code: Final Report FULL RESULT: EXAM: Screening Mammo w/Tk DATE: 09/06/2019 11:47 AM CLINICAL HISTORY: Screening encounter. History of late childbearing. Baseline examination. TECHNIQUE: (B) - Bilateral CC and MLO views were obtained. COMPARISON: None PARENCHYMAL PATTERN: (D) - The breast(s) demonstrate(s) heterogeneously dense fibroglandular parenchyma. FINDINGS: There are no suspicious masses, calcifications, or areas of distortion. IMPRESSION: Negative examination. BI-RADS category 1. RECOMMENDATION: (ANNUAL) - Recommend routine annual screening mammography. BI-RADS CATEGORY: (1) - Negative. STANDARD QUALIFYING STATEMENTS: 1. This examination was not reviewed with the aid of Computer-Aided Detection (CAD). 2. A negative or benign imaging report should not preclude biopsy if clinically suspicious findings are present. 3. Dense breasts may obscure an underlying neoplasm. 4. This examination was reviewed with the aid of 3D breast imaging (tomosynthesis).
== END 2019-09-06 09:43 | disposition home or self-care (01) ==
LOC: DI 09:42
DX: Z12.31 Encounter for screening mammogram for malignant neoplasm of breast (principal)
CPT/HCPCS: 77063; 77067

== ENCOUNTER 2020-06-05 16:20 | Outpatient (CLI) | payer BC | END 2020-06-05 16:21 | disposition home or self-care (01) | LOC: COV 16:20 | PROVIDERS: ATTEND Family Medicine | DX: R05 Cough (principal); R53.83 Other fatigue; J02.9 Acute pharyngitis, unspecified; R09.81 Nasal congestion; Z20.828 Contact with and (suspected) exposure to other viral communicable diseases ==

== ENCOUNTER 2021-02-26 16:08 | Outpatient (CLI) | payer BC ==
[2021-02-26 16:40] LABS: BASOPHILS # (AUTO) 0.1 10^3/uL (0.0-0.1); BASOPHILS % (AUTO) 0.7 %; EOSINOPHILS # (AUTO) 0.1 10^3/uL (0.0-0.7); EOSINOPHILS % (AUTO) 1.6 %; HGB - HEMOGLOBIN 13.5 g/dL (12.0-16.0); LYMPHOCYTES # (AUTO) 2.4 10^3/uL (1.5-3.5); LYMPHOCYTES % (AUTO) 27.7 %; MEAN CORPUSCULAR HGB CONC 34.6 g/dL (32.0-36.0); MEAN CORPUSCULAR VOLUME 92.4 fL (81.0-99.0); MONOCYTES # (AUTO) 0.5 10^3/uL (0.0-1.0); MONOCYTES % (AUTO) 6.1 %; NEUTROPHILS # (AUTO) 5.6 10^3/uL (1.5-6.6); NEUTROPHILS % (AUTO) 63.7 %; PLT - PLATELET COUNT 264 10^3/uL (130-450); RED BLOOD COUNT 4.22 10^6/uL (4.20-5.40); RED CELL DISTRIBUTION WIDTH 12.5 % (12.0-15.0); WHITE BLOOD COUNT 8.8 x10^3/uL (4.8-10.8)
[2021-02-26 16:50] LABS: CALCIUM 9.4 mg/dL (8.5-10.3); CREATININE 0.6 mg/dL (0.4-1.0); POTASSIUM 4.2 mmol/L (3.5-5.0)
[2021-02-26 17:10] LABS: THYROID STIMULATING HORMONE 2.12 uIU/mL (0.34-5.60)
[2021-02-26 20:29] LABS: ESTIMATED AVERAGE GLUCOSE 111 mg/dL (70-100); HEMOGLOBIN A1c% 5.5 % (4.27-6.07)
== END 2021-02-26 16:09 | disposition home or self-care (01) ==
LOC: LAB 16:08
PROVIDERS: ATTEND Physician Assistant
DX: F41.1 Generalized anxiety disorder (principal); R53.83 Other fatigue; Z79.899 Other long term (current) drug therapy; G47.00 Insomnia, unspecified; F32.9 Major depressive disorder, single episode, unspecified; R73.01 Impaired fasting glucose
CPT/HCPCS: 36415; 80048; 83036; 84443; 85025

== ENCOUNTER 2021-03-30 08:00 | Outpatient (CLI) | payer BC | END 2021-03-30 23:59 | disposition home or self-care (01) | LOC: LAB.S 08:00 | PROVIDERS: ATTEND Physician Assistant | DX: N39.0 Urinary tract infection, site not specified (principal) | CPT/HCPCS: 87077; 87086; 87181 ==

== ENCOUNTER 2021-08-21 16:44 | Emergency (ER) | payer BC ==
--- NOTE | 2021-08-21 16:59 | ED Physician Documentation ---
PD HPI ABD PAIN - Stated complaint Stated Complaint: LRQ PAIN - Chief complaint Chief Complaint: Abd Pain - History obtained from History obtained from: Patient - History of Present Illness Timing - onset: How many weeks ago (1) Timing - duration: Weeks (1) Timing - details: Gradual onset, Still present, Waxing and waning (initially but has become more consistent the past few days. Localized to LLQ.) Quality: Cramping, Aching, Pain Location: LLQ Radiation: Lower back Improved by: Position (worse lying left side.). No: Eating Worsened by: Moving. No: Eating, Breathing Associated symptoms: No: Fever, Nausea, Vomiting, Diarrhea Similar symptoms before: Diagnosis (had similar symptoms from right ovarian cyst in the past that did need surgical removal due to extent/duration of symptoms. No complications.) Recently seen: Not recently seen Review of Systems Constitutional: denies: Fever, Chills Nose: denies: Rhinorrhea / runny nose, Congestion Throat: denies: Sore throat Respiratory: denies: Cough GI: reports: Abdominal Pain. denies: Nausea, Vomiting, Diarrhea : denies: Dysuria, Frequency, Discharge Skin: denies: Rash Neurologic: denies: Generalized weakness, Near syncope PD PAST MEDICAL HISTORY - Past Medical History Cardiovascular: None Respiratory: None Endocrine/Autoimmune: None [place]: Ovarian cysts - Present Medications Home Medications: Ambulatory Orders Medication Instructions Recorded Confirmed Cholecalciferol (Vitamin D3) 2,000 unit PO DAILY 10/10/17 08/21/21 [Vitamin D] Estradiol/Levonorgestrel [Climara 1 each TD OAW 10/10/17 08/21/21 Pro Patch] Fluoxetine HCl [Prozac] 40 mg PO DAILY 10/10/17 08/21/21 Multivitamin [Multiple Vitamins] 1 each PO DAILY 10/10/17 08/21/21 Vitamin B Complex 1 each PO DAILY 10/10/17 08/21/21 lysine HCL [Lysine HCl] 600 mg PO DAILY 10/10/17 08/21/21 Atomoxetine HCl [Strattera] 40 mg PO DAILY 08/21/21 08/21/21 Buspirone HCl 10 mg PO BID 08/21/21 08/21/21 Losartan Potassium [Cozaar] 100 mg PO DAILY 08/21/21 08/21/21 traZODone [Desyrel] 50 mg PO QPM 08/21/21 08/21/21 - Allergies Allergies/Adverse Reactions: Allergies Allergy/AdvReac Type Severity Reaction Status Date / Time No Known Drug Allergies Allergy Verified 08/21/21 19:23 - Social History Smoking Status: Former smoker PD ED PE NORMAL - Vitals Vital signs reviewed: Yes - General General: Alert and oriented X 3, No acute distress, Well developed/nourished - Neck Neck: Supple, no meningeal sign, No adenopathy - Cardiac Cardiac: RRR, No murmur - Respiratory Respiratory: Clear bilaterally - Abdomen Abdomen: Normal bowel sounds, Soft, Non distended, No organomegaly, Other (tender lower left abd in suprapubic area, locally. No guarding nor percussion tnederness. ) - Female Female : Deferred - Rectal Rectal: Deferred - Back Back: No CVA TTP - Derm Derm: Normal color, Warm and dry - Neuro Neuro: Alert and oriented X 3, No motor deficit, Normal speech Results - Vitals Vitals: Vital Signs - 24 hr 08/21/21 08/21/21 08/21/21 16:48 18:08 19:17 Temperature 36.1 C L 36.6 C Heart Rate 103 H 92 85 Respiratory 18 16 16 Rate Blood Pressure 161/88 H 140/94 H 145/70 H O2 Saturation 100 99 100 08/21/21 21:13 Temperature Heart Rate 82 Respiratory 18 Rate Blood Pressure 134/75 H O2 Saturation 95 Oxygen O2 Source Room air - Labs Labs: Laboratory Tests 08/21/21 08/21/21 08/21/21 16:55 17:15 17:15 WBC 8.1 RBC 4.14 L Hgb 13.1 Hct 37.8 MCV 91.3 MCH 31.6 H MCHC 34.7 RDW 12.3 Plt Count 297 MPV 8.9 Neut # (Auto) 5.6 Lymph # (Auto) 1.8 Thayer # (Auto) 0.5 Eos # (Auto) 0.1 Baso # (Auto) 0.1 Absolute Nucleated RBC 0.00 Nucleated RBC % 0.0 Sodium 136 Potassium 3.8 Chloride 99 L Carbon Dioxide 27 Anion Gap 10.0 BUN 10 Creatinine 0.6 Estimated GFR (MDRD) 108 Glucose 123 H Calcium 9.2 Total Bilirubin 0.7 AST 23 ALT 35 Alkaline Phosphatase 41 L Total Protein 7.9 Albumin 4.4 Globulin 3.5 Albumin/Globulin Ratio 1.3 Lipase 31 Urine Color YELLOW Urine Clarity HAZY Urine pH 5.5 Ur Specific [place] 1.025 Urine Protein NEGATIVE Urine Glucose (UA) NEGATIVE Urine Ketones NEGATIVE Urine Occult Blood SMALL H Urine Nitrite NEGATIVE Urine Bilirubin NEGATIVE Urine Urobilinogen 0.2 (NORMAL) Ur Leukocyte Esterase NEGATIVE Urine RBC 6-10 H Urine WBC 0-3 Ur Squamous Epith Cells MANY Squamous H Urine Bacteria None Seen Ur Microscopic Review INDICATED Urine Culture Comments NOT INDICATED Urine HCG, Qual NEGATIVE - Rads (name of study) pelvic U/S Radiology: Prelim report reviewed (patient thought she had had prior right ovary cyst/removal, but left is absent. Right with current 5.4 cm cyst. No free fluid. ), See rad report abd/pelvic CT Radiology: Prelim report reviewed (ovarian cyst again seen. No other acute process. ), See rad report PD MEDICAL DECISION MAKING - ED course Complexity details: reviewed results, considered differential (Dates current symptoms feel similar to a prior ovarian cyst on the other side. Tenderness is localized without any peritoneal signs. Can start with ultrasound blood count and urine to evaluate. If to normal, consider moving onto CT scan for other considerations such as stone, diverticula, other.), d/w patient Departure - Departure Disposition: 01 Home, Self Care Clinical Impression: Abdominal pain Condition: Good Instructions: Abdominal Pain Comments: You are seen in the emergency department for abdominal pain. Your lab work, ultrasound, and CT did not show an emergent cause of your condition. You do have a right ovarian cyst that needs a follow-up ultrasound in 6 weeks. Please follow-up with your [facility] and return to the emergency department if you have any new or worsening symptoms or other concerns.
[2021-08-21 17:09] LABS: BILIRUBIN,URINE NEGATIVE (NEGATIVE); GLUCOSE, URINE (UA) NEGATIVE (NEGATIVE); KETONES,URINE (UA) NEGATIVE (NEGATIVE); LEUKOCYTE ESTERASE, URINE NEGATIVE (NEGATIVE); NITRITE,URINE NEGATIVE (NEGATIVE); OCCULT BLOOD,URINE SMALL (NEGATIVE); PH,URINE 5.5 PH (5.0-7.5); PROTEIN,URINE NEGATIVE (NEGATIVE); UROBILINOGEN,URINE 0.2 (NORMAL) E.U./dL (NORMAL)
[2021-08-21] MEDS ORDERED: KETOROLAC 30 MG/ML VIAL IVP STA (17:09)
[2021-08-21 17:12] LABS: CLARITY,URINE HAZY (CLEAR); HCG UR QUAL NEGATIVE
[2021-08-21 17:25] LABS: SQUAMOUS EPITHELIAL CELL,UR MANY Squamous (<= Few); WBC,URINE 0-3 /HPF (0-5)
[2021-08-21 17:26] LABS: BACTERIA,URINE None Seen /HPF (None Seen)
[2021-08-21 17:26] LABS: BASOPHILS # (AUTO) 0.1 10^3/uL (0.0-0.1); BASOPHILS % (AUTO) 0.6 %; EOSINOPHILS # (AUTO) 0.1 10^3/uL (0.0-0.7); EOSINOPHILS % (AUTO) 1.4 %; HCT - HEMATOCRIT 37.8 % (37.0-47.0); HGB - HEMOGLOBIN 13.1 g/dL (12.0-16.0); LYMPHOCYTES # (AUTO) 1.8 10^3/uL (1.5-3.5); LYMPHOCYTES % (AUTO) 22.1 %; MEAN CORPUSCULAR HEMOGLOBIN 31.6 pg (27.0-31.0); MEAN CORPUSCULAR HGB CONC 34.7 g/dL (32.0-36.0); MEAN CORPUSCULAR VOLUME 91.3 fL (81.0-99.0); MEAN PLATELET VOLUME 8.9 fL (7.9-10.8); MONOCYTES # (AUTO) 0.5 10^3/uL (0.0-1.0); MONOCYTES % (AUTO) 6.2 %; NEUTROPHILS # (AUTO) 5.6 10^3/uL (1.5-6.6); NEUTROPHILS % (AUTO) 69.3 %; PLT - PLATELET COUNT 297 10^3/uL (130-450); RED BLOOD COUNT 4.14 10^6/uL (4.20-5.40); RED CELL DISTRIBUTION WIDTH 12.3 % (12.0-15.0); WHITE BLOOD COUNT 8.1 x10^3/uL (4.8-10.8)
[2021-08-21 17:38] LABS: ALBUMIN 4.4 g/dL (3.2-5.5); ALBUMIN/GLOBULIN RATIO 1.3 (1.0-2.2); BILIRUBIN,TOTAL 0.7 mg/dL (0.2-1.0); CALCIUM 9.2 mg/dL (8.5-10.3); CREATININE 0.6 mg/dL (0.4-1.0); POTASSIUM 3.8 mmol/L (3.5-5.0); TOTAL PROTEIN 7.9 g/dL (6.7-8.2)
[2021-08-21] MEDS ORDERED: iohexoL-300 100 ML VIAL ONE (19:13)
--- NOTE | 2021-08-21 19:13 | Ultrasound Report ---
PROCEDURE: Pelvic w/Doppler Complete INDICATIONS: R PELVIC PAIN TECHNIQUE: Real-time scanning was performed of the pelvic organs, with image documentation. Additional endovagi nal scanning was necessary due to incomplete visualization of the adnexal and endometrial structures by transabdominal scanning. COMPARISON: Ultrasound pelvis 09/06/2019 FINDINGS: No pathologic free abdominal or pelvic fluid. Uterus: Uterus is enlarged measuring 12.1 x 6.1 x 6.4 cm. The endometrium measures 7.5 mm in combin ed thickness. IUD is present in appropriate position. Ovaries: Left ovary has been removed. Right ovary measures 7.8 x 6.4 x 6.1 cm, volume 1 59 cc. There is a focus of decreased echogenicity within the right ovary measuring 5.7 x 5.2 x 7.1 cm. Previous f ocus of decreased echogenicity within the right ovary is present measuring approximately 3.0 x 2.6 cm . IMPRESSION: 1. Persistent cyst within the right ovary increased compared to prior exam. Reviewed by: Ayala Dixon MD on 08/21/2021 7:12 PM PST Approved by: Ayala Dixon MD on 08/21/2021 7:12 PM PST Station ID: [id number]
[2021-08-21] MEDS ORDERED: iohexoL-300 100 ML VIAL IVP ONE (19:28)
--- NOTE | 2021-08-21 19:48 | CT Report ---
PROCEDURE: Abdomen/Pelvis W INDICATIONS: LLQ pain CONTRAST: IV CONTRAST: Isovue 300 ml: 100 PO CONTRAST: *NO PO CONTRAST TECHNIQUE: After the administration of IV contrast, 5 mm thick sections acquired from the diaphragms to the symp hysis. 5 mm thick coronal and sagittal reformats were acquired. For radiation dose reduction, the f ollowing was used: automated exposure control, adjustment of mA and/or kV according to patient size. COMPARISON: Pelvic ultrasound 08/21/2021, CT IVP 10/21/2017 FINDINGS: Image quality: Excellent. ABDOMEN: Lung bases: Lung bases are clear. Heart size is normal. Solid organs: Liver demonstrates diffuse fatty infiltration. The spleen is normal in size and enhanc ement. Gallbladder is contracted and grossly unremarkable Biliary system is non dilated. Pancreas enhances normally. No adrenal nodules. Kidneys demonstrate normal size and enhancement, without hyd ronephrosis. Peritoneum and bowel: Bowel loops demonstrate normal wall thickness and caliber. No free fluid or a ir. Appendix is normal. Nodes and vessels: No retroperitoneal or mesenteric adenopathy by size criteria. Aorta and inferior vena cava are normal in size. Miscellaneous: Fat-containing ventral hernia is present. PELVIS: Genitourinary: Bladder wall thickness is normal. Lobulated focus of decreased echogenicity is presen t within the right ovary measuring 5.4 cm. There is a focus of soft tissue density along the right la teral aspect. IUD is present. Miscellaneous: No inguinal hernias or adenopathy. Bones: No suspicious bony lesions. No vertebral body compression fractures. IMPRESSION: 1. Lobulated focus of decreased echogenicity within the right adnexa most suggestive of a septated cy st. This correlates with appearance of cyst on pelvic ultrasound. Lateral soft tissue density is pres ent which appears most suggestive of the ovary. However, secondary to limited characterization of thi s region on ultrasound, further evaluation is also limited. While this likely represents a benign sep tated cyst with partially obscured right ovary, recommend six-week interval pelvic ultrasound follow- up to document resolution and further evaluation of soft tissue density to confirm ovary versus nonov farhat soft tissue nodule. Reviewed by: Ayala Dixon MD on 08/21/2021 7:47 PM PST Approved by: Ayala Dixon MD on 08/21/2021 7:47 PM PST Station ID: [id number]
[2021-08-21 21:14] VITALS: BP 134/75
--- NOTE | 2021-08-21 21:28 | ED Physician Documentation ---
ED Addendum - Addendum Addendum: 08/21/21 21:27 46-year-old woman with abdominal pain and endorsed me by Dr. Adames pending CT. CT without evidence of diverticulitis. She does have a right ovarian cyst which I discussed with her needs to have a follow-up ultrasound in 6 weeks. Return precautions given. She will follow-up with [facility]. Disposition Home Condition good Impression 1 abdominal pain
== END 2021-08-21 21:35 | disposition home or self-care (01) ==
LOC: ED 16:44
DX: R10.32 Left lower quadrant pain (principal); N83.201 Unspecified ovarian cyst, right side; Z87.891 Personal history of nicotine dependence
CPT/HCPCS: 36415; 74177; 76856; 80053; 81001; 81025; 83690; 85025; 93975; 96374; 99282; 99284; Q9967; 81003; 87086

== ENCOUNTER 2021-10-09 12:49 | Outpatient (CLI) | payer BC ==
--- NOTE | 2021-10-09 16:36 | Ultrasound Report ---
PROCEDURE: Pelvic w/Transvaginal INDICATIONS: HX OF OVARIAN CYST TECHNIQUE: Real-time scanning was performed of the pelvic organs, with image documentation. Additional endovagi nal scanning was necessary due to incomplete visualization of the adnexal and endometrial structures by transabdominal scanning. COMPARISON: CT of abdomen and pelvis dated 08/21/2021 and pelvic ultrasound dated 08/21/2021 and 2019. FINDINGS: Transabdominal scanning: Limited scanning through the kidneys shows no hydronephrosis. No pathologi c free abdominal or pelvic fluid. Endovaginal scanning: Uterus: Retroverted uterus measures 10.2 x 5.3 x 5.6 cm in size. 2.4 x 2.1 x 2.3 cm intramural fibroi d in right anterior myometrium is seen, previously measures 2.4 x 1.6 x 2 cm in size. Diffusely heter ogeneous myometrial echotexture is seen. The endometrium measures 4 mm in combined thickness. No christine ss endometrial mass is seen. Intrauterine device is noted within its central endometrial location wit h right heart of intrauterine device appears to perforate into the myometrium. Ovaries: Right ovary measures 5.5 x 4 x 5.0 cm in size with a volume of 63 cc. 4.6 x 2.8 x 3.9 cm cy stic structure with internal mural nodules and the 1.7 x 0.7 x 1.8 cm echogenic focus is seen. 2 x 1. 9 x 1.5 cm cystic structure is also noted in right ovary with small internal solid appearing nodules. Left ovary is surgically absent. IMPRESSION: 1. Intrauterine device appears to perforate into right myometrium, suggest clinical correlation. 2. Interval slight increase in size of patient's known intramural fibroid as above. 3. 2 right ovarian cysts with solid appearing mural nodules, cystic neoplasm cannot be excluded. Cont inued sonographic follow-up is recommended in 3 months. Left ovary is surgically absent. Reviewed by: Rafita Gómez MD on 10/09/2021 4:34 PM PST Approved by: Rafita Gómez MD on 10/09/2021 4:34 PM PST Station ID: [id number]
== END 2021-10-09 12:50 | disposition home or self-care (01) ==
LOC: DI 12:49
PROVIDERS: ATTEND Obstetrics & Gynecology
DX: Z87.42 Personal history of other diseases of the female genital tract (principal); Z97.5 Presence of (intrauterine) contraceptive device; D25.1 Intramural leiomyoma of uterus; N83.201 Unspecified ovarian cyst, right side

== ENCOUNTER 2021-10-13 11:15 | Outpatient (CLI) | payer BC | END 2021-10-13 11:16 | disposition home or self-care (01) | LOC: LAB 11:15 | PROVIDERS: ATTEND Obstetrics & Gynecology | DX: N83.291 Other ovarian cyst, right side (principal) | CPT/HCPCS: 36415; 82378; 86304 ==